=== PATIENT | female | born 1940 | race Caucasian/White ===

== ENCOUNTER 2018-05-20 07:46 | Day surgery (SDC) | payer MEDICARE ==
[2018-05-13 12:09] VITALS: BMI 33.2
[~2018-05-20 07:46] MED LIST: HYDROmorphone 1 MG/ML 1 ML SYRINGE IVP PRN; LACTATED RINGERS 1,000 ML IV SCH; MOXIFLOXACIN HCL 0.5% DROPS 3 ML BTL OP ONE; PILOCARPINE 2% OPHTH DROPS 15 ML BTL OP ONE; TETRACAINE 0.5% OPHTH (PF) DROPS 4 ML BTL OP ONE; TIMOLOL 0.5% OPHTH DROPS 5 ML BTL OP ONE
[2018-05-20 08:47] VITALS: RESP 16; TEMP 97
[2018-05-20] MEDS ORDERED: LIDOCAINE 1% 20 ML VIAL (10MG/ML) FOR IV START INTRADERMA ONE (08:47)
[2018-05-20 08:51] LABS: Glucose,Whole Blood 113 mg/dL (75-99)
[2018-05-20] MEDS ORDERED: fentaNYL (PF) 50 MCG/ML 2 ML AMP ONE (09:37)
[2018-05-20] MEDS ORDERED: MIDAZOLAM 2 MG/2 ML VIAL ONE (09:37)
[2018-05-20] MEDS ORDERED: BALANCED SALT IRRIG SOLN COMB2 15 ML IRRIG.SOLN IRRIGATION ONE (09:41)
[2018-05-20] MEDS ORDERED: DUOVISC KIT (GREEN BOX) INTRAOCULA ONE (09:41)
[2018-05-20] MEDS ORDERED: LIDOCAINE 1% (PF) 10MG/ML VIAL SQ ONE (09:41)
[2018-05-20] MEDS ORDERED: EPINEPHrine (PF) 0.3 ML in BALANCED SALT IRRIG SOLN COMB2 500 ML IRRIGATION ONE (09:42)
[2018-05-20] MEDS ORDERED: FLUORESCEIN STRIPS 1 MG STRIP LEFT EYE ONE (09:57)
[2018-05-20] MEDS ORDERED: BACITRACIN 500 UNIT/GM OINT 28.4 GM TUBE TOPICAL ONE (10:01)
--- NOTE | 2018-05-20 10:07 | P.OP ---
Date of Procedure: 05/20/18 Preoperative Diagnosis: POAG moderate Postoperative Diagnosis: same Procedure(s) Performed: goniotomy OS Implants: none Anesthesia: MAC Surgeon: Rickey Kincaid Estimated Blood Loss (ml): 0 Pathology: none sent Condition: stable Disposition: same day Indications for Procedure: POAG not controlled Operative Findings: no complications, except for skin irritation from drape coated with polysporin ointment.
[2018-05-20 10:38] VITALS: BP 132/72; PULSE 62
--- NOTE | 2018-05-20 16:08 | OP ---
OPERATIVE REPORT DATE OF SURGERY: May 20, 2018. PROCEDURE PERFORMED: Goniotomy of the left eye. PREOPERATIVE DIAGNOSIS: Primary open-angle glaucoma, severe stage, left eye. POSTOPERATIVE DIAGNOSIS: Primary open angle glaucoma, severe stage, left eye. SURGEON: Dr. Rickey Kincaid. ANESTHESIA: Topical. ESTIMATED BLOOD LOSS: Less than 5 mL. SPECIMEN: Taken none. NARRATIVE: After obtaining the appropriate consent, the patient was brought to the operating room. There she was placed on cardiac monitoring prepped and draped in the usual sterile manner. She was approached from her left temporal side and at the 3 o'clock position, a 2.5 mm keratome was used to create a self-sealing corneal flap incision in a Langerman's fashion. Through this opening 1% Xylocaine MPF 50 50 mix with balanced salt solution was injected into the anterior chamber. This was followed by stabilization of the anterior chamber with Viscoat. A small amount of Viscoat was also placed on the patient's cornea. She was then asked to rotate her head to the right approximately 45 degrees and maintain her gaze in that direction. A gonio prism was placed on the patient's eye. The trabecular meshwork was easily identified and a Xerion Advanced Batteryk dual blade goniotomy knife was passed across the anterior chamber and using a cristobal and meet technique, the trabecular meshwork was scored followed by the removal of approximately 5 hours of trabecular meshwork on the nasal side of the patient's eye. A small amount of blood was identified as one would expect during the course of the procedure. Irrigation/aspiration was introduced to remove the viscoelastic and temporarily tamponade the blood. The eye was then brought to normal intraocular pressure after hydrating the temporal incision. She received 2 drops of 0.5% timolol as well as 1% pilocarpine, and moxifloxacin. Fluorescein was used to confirmed watertight integrity. She was then lightly patched and shielded at the end of the case. There were no complications from the procedure. She tolerated the procedure well, was returned to outpatient recovery in good condition. MMODL / IJN: [id number] /
== END 2018-05-20 10:53 | disposition home or self-care (01) ==
LOC: OR 07:46
PROVIDERS: ATTEND Ophthalmology
DX: H40.1123 Primary open-angle glaucoma, left eye, severe stage (principal); H40.1323 Pigmentary glaucoma, left eye, severe stage; H40.131 Pigmentary glaucoma, right eye; H47.20 Unspecified optic atrophy; H52.4 Presbyopia; H21.233 Degeneration of iris (pigmentary), bilateral; H52.13 Myopia, bilateral; H00.026 Hordeolum internum left eye, unspecified eyelid; H00.023 Hordeolum internum right eye, unspecified eyelid; Z96.1 Presence of intraocular lens; I10 Essential (primary) hypertension; R73.03 Prediabetes; E07.9 Disorder of thyroid, unspecified; M19.90 Unspecified osteoarthritis, unspecified site; Z79.84 Long term (current) use of oral hypoglycemic drugs; Z79.890 Hormone replacement therapy; Z79.899 Other long term (current) drug therapy; Z79.82 Long term (current) use of aspirin; Z88.8 Allergy status to other drugs, medicaments and biological substances; Z88.2 Allergy status to sulfonamides
CPT/HCPCS: 65820; J2250; J0171; J3010; J2001

== ENCOUNTER 2019-03-17 08:17 | Day surgery (SDC) | payer MEDICARE ==
[2019-03-10 15:34] VITALS: BMI 30.2
[~2019-03-17 08:17] MED LIST changes: -HYDROmorphone 1 MG/ML 1 ML SYRINGE IVP PRN; +LIDOCAINE 1% 20 ML VIAL (10MG/ML) FOR IV START INTRADERMA PRN; +MIDAZOLAM 2 MG/2 ML VIAL IV PRN; +MITOMYCIN OP ONE; -PILOCARPINE 2% OPHTH DROPS 15 ML BTL OP ONE; -TIMOLOL 0.5% OPHTH DROPS 5 ML BTL OP ONE
[2019-03-17 09:05] LABS: Glucose,Whole Blood 136 mg/dL (75-99)
[2019-03-17 09:11] VITALS: RESP 16; TEMP 98.3
[2019-03-17] MEDS ORDERED: MIDAZOLAM 2 MG/2 ML VIAL ONE (10:01)
[2019-03-17] MEDS ORDERED: fentaNYL (PF) 50 MCG/ML 2 ML AMP ONE (10:01)
[2019-03-17] MEDS ORDERED: EPINEPHrine (PF) 0.3 ML in BALANCED SALT IRRIG SOLN COMB2 500 ML IRRIGATION ONE (10:08)
[2019-03-17] MEDS ORDERED: BALANCED SALT IRRIG SOLN COMB2 15 ML IRRIG.SOLN IRRIGATION ONE (10:10)
[2019-03-17] MEDS ORDERED: LIDOCAINE 2%-EPI 1:100,000 20 ML VIAL SQ ONE (10:19)
[2019-03-17] MEDS ORDERED: FLUORESCEIN STRIPS 1 MG STRIP RIGHT EYE ONE (11:02)
--- NOTE | 2019-03-17 11:09 | P.OP ---
Date of Procedure: 03/17/19 Preoperative Diagnosis: POAG uncontrolled Postoperative Diagnosis: same Procedure(s) Performed: shunt trabeculectomy Implants: Ex-Press P50 Anesthesia: MAC Surgeon: Rickey Kincaid Pathology: none sent Condition: stable Disposition: same day Indications for Procedure: uncontrolled glaucoma Operative Findings: no complications
[2019-03-17 11:28] VITALS: BP 134/77; PULSE 71
--- NOTE | 2019-03-18 07:59 | OP ---
OPERATIVE REPORT DATE OF SURGERY: 03/17/2019 PROCEDURE: Shunt trabeculectomy of the right eye with mitomycin. PREOPERATIVE DIAGNOSIS: Uncontrolled glaucoma of moderate stage. POSTOPERATIVE DIAGNOSIS: Uncontrolled glaucoma of moderate stage. SURGEON: Dr. Rickey Kincaid. ANESTHESIA: Topical. ESTIMATED BLOOD LOSS: Less than 5 mL. SPECIMEN TAKEN: None. NARRATIVE: After obtaining the appropriate consent, the patient was brought to the operating room. There she was placed on cardiac monitoring, prepped and draped in the usual sterile manner. She was approached from the 12 o'clock position and a 6-0 silk suture was used to apply traction to the 12 o'clock position of the eye reflecting the globe in a down gaze. In the superior temporal quadrant, forceps were used to elevate the conjunctiva and Montrell scissors were used to divide the tissue down to bare sclera undermining Tenon's and conjunctiva starting from the superior temporal position and proceeding along the superior aspect of the globe for approximately 180 degrees. This whole area was bluntly dissected without significant difficulty. Conjunctiva was then removed from the limbus and reflected posteriorly. Bipolar cautery was used to control the scleral bleeding. During this conjunctival undermining, 2% lidocaine with epinephrine was infiltrated through the entire superior hemisphere of the eye. An area at the 12 o'clock position adjacent to the limbus was measured out at 3 x 3 mm and was then subsequently outlined using bipolar cautery. A partial thickness scleral flap was created directing the flap with a hinge at the corneal limbus. Once the area was relatively well hemostatically controlled, a solution of mitomycin of 0.2 mg/mL was placed against this area for approximately 2 minutes using a Weck-Ольга sponge. Once the time elapsed, the sponge and the instrument used to place the sponge were removed from the field and the area was copiously irrigated with balanced salt solution. A 27-gauge hypodermic needle was bent to accommodate its use at the limbus of the eye and at the apex of the flap this gentian evangelist marked, 27-gauge needle was then passed from sclera into the anterior chamber parallel to the iris. Once the 27-gauge needle used as a trocar was removed from the eye, an Gee Ex-Press version P 50 shunt was then placed through the path previously created by the 27-gauge needle. Good aqueous flow was appreciated through the opening of the shunt and the flap was then placed back over its bed. It was secured with two 10-0 nylon sutures leaving the flap moderately tight to the scleral bed. One last look around for any remaining bleeders was accomplished and those were cauterized using the bipolar cautery. The conjunctiva was then brought back to its original position and an 8-0 Vicryl suture was used to secure the superior temporal incision ensuring that the superior limbus was completely covered with conjunctiva. A fluorescein strip was used to confirm watertight integrity. The patient then received 2 drops of moxifloxacin, was then lightly patched and shielded in the usual fashion. At the end of the case prior to patching the eye, the intra-ocular pressure was noted to be less than 5 mmHg by palpation. The eye was patched and shielded in the usual manner. There were no complications from the procedure and she tolerated the procedure well. She was then returned to recovery in good condition. YUDITH / ASIM: [id number] /
== END 2019-03-17 11:58 | disposition home or self-care (01) ==
LOC: OR 08:17
PROVIDERS: ATTEND Ophthalmology
DX: H40.131 Pigmentary glaucoma, right eye (principal); H47.20 Unspecified optic atrophy; H52.4 Presbyopia; H21.233 Degeneration of iris (pigmentary), bilateral; H00.023 Hordeolum internum right eye, unspecified eyelid; H00.026 Hordeolum internum left eye, unspecified eyelid; I10 Essential (primary) hypertension; E11.9 Type 2 diabetes mellitus without complications; Z79.890 Hormone replacement therapy; Z79.899 Other long term (current) drug therapy
CPT/HCPCS: 66170; C1783; J2250; J0171; J3010

== ENCOUNTER 2019-09-15 10:40 | Day surgery (SDC) | payer MEDICARE ==
[2019-09-13 14:32] VITALS: BMI 29.7
[~2019-09-15 10:40] MED LIST changes: -MIDAZOLAM 2 MG/2 ML VIAL IV PRN; -MITOMYCIN OP ONE; -MOXIFLOXACIN HCL 0.5% DROPS 3 ML BTL OP ONE; +mitoMYcin for Eyes 0.06 MG, EMPTY SYRINGE 1 SYR OP ONE
[2019-09-15 11:22] VITALS: TEMP 97.4
[2019-09-15 11:34] LABS: Glucose,Whole Blood 119 mg/dL (75-99)
[2019-09-15] MEDS ORDERED: MIDAZOLAM 2 MG/2 ML VIAL ONE (12:48)
[2019-09-15] MEDS ORDERED: fentaNYL (PF) 50 MCG/ML 2 ML AMP ONE (12:48)
[2019-09-15] MEDS ORDERED: LIDOCAINE 2%-EPI 1:100,000 20 ML VIAL SUBMUCOSAL ONE (13:12)
[2019-09-15] MEDS ORDERED: FLUORESCEIN STRIPS 1 MG STRIP LEFT EYE ONE (13:57)
[2019-09-15] MEDS ORDERED: NEOMYCIN-POLYMYXIN-DEXAMETH OINT 3.5 GM TUBE LEFT EYE ONE (13:59)
[2019-09-15 14:24] VITALS: BP 133/80; PULSE 77; RESP 18
--- NOTE | 2019-09-15 14:31 | P.OP ---
Date of Procedure: 09/15/19 Preoperative Diagnosis: POAG severe Postoperative Diagnosis: same Procedure(s) Performed: shunt implant with MMC Implants: R50 Anesthesia: MAC Surgeon: Rickey Kincaid Pathology: none sent Condition: stable Disposition: same day Indications for Procedure: poor glaucoma control Operative Findings: no complications
--- NOTE | 2019-09-15 21:04 | OP ---
OPERATIVE REPORT DATE OF SURGERY: 09/15/2019. PROCEDURE: Ex-Press shunt implantation with mitomycin of the left eye. PREOPERATIVE DIAGNOSIS: Primary open-angle glaucoma, severe stage. POSTOPERATIVE DIAGNOSIS: Primary open-angle glaucoma, severe stage. SURGEON: Dr. Rickey Kincaid. ANESTHESIA: Topical. ESTIMATED BLOOD LOSS: Less than 5 mL. SPECIMEN TAKEN: None. NARRATIVE: After obtaining the appropriate consent, the patient was brought to the operating room. There she was placed on cardiac monitoring, prepped and draped in the usual sterile manner. She was approached from her 12 o'clock position. Intraocular pressure with a Schiotz tonometer was identified at 17 mmHg. This was followed by placement of a traction suture using 6-0 Vicryl at the 12 o'clock position and securing the eye in a down gaze. In the superotemporal quadrant scissors and 0.12 forceps were used to create an incision through the conjunctiva and Tenon's tissue down to bare sclera. Initial undermining with blunt dissection was accomplished with Montrell scissors. This was followed by instillation of 2% lidocaine with epinephrine on a cannula beneath Tenon's capsule along the entire superior and toward the nasal side of the eye. Conjunctival tissue was then reflected from the limbus and undermined as far superiorly and proximally as possible through the entire extent. Bipolar cautery was used to control superficial bleeding from the sclera and centrally at the corneal limbus. A 3 x 3 mm square was identified, and using the caliper, and outlined using the bipolar cautery. A 2 mm crescent blade was used to create a partial-thickness scleral pocket which was directed towards the corneal limbus. Each side of this pocket was then incised using the Montrell scissors, creating a square partial-thickness scleral flap. In this area a solution of mitomycin of 2 mg/mL on an instrument wipe was then placed beneath the partial-thickness scleral flap and its bed along with the local conjunctiva, which was brought superiorly over the corneal limbus. This solution was allowed to dwell in this area for 2 minutes. Mitomycin was then aggressively lubricated away using balanced-salt solution. A 27-gauge mqaj-[id number]-y-half hypodermic needle was then bent and passed from the apex of the partial-thickness scleral pocket parallel to the iris and into the anterior chamber. An Ex-Press shunt version P50 was then placed through this opening piloted by the 27-gauge needle. Confirmation of aqueous from the shunt device was confirmed. The partial-thickness scleral flap was then secured to its bed loosely using two 10-0 nylon sutures on each leg of the flap. Any superficial oozing of blood was identified and cauterized using the bipolar cautery, and the conjunctiva was then brought over the superior limbus of the cornea and secured using 8- 0 Vicryl suture. Fluorescein was used to confirm watertight integrity and the 6-0 traction suture was removed from the patient's eye. Intraocular pressure measured with the Schiotz tonometer using a 5.5 gram weight was not recordable; however, it measured 18 on the numeric scale on the Schiotz tonometer. The patient's eye was then dressed with Maxitrol ointment followed by a light patch and was shielded in the usual manner. There were no complications from this procedure. She was returned to Outpatient Recovery in good condition. MMOBED / COLINN: [id number] /
== END 2019-09-15 14:52 | disposition home or self-care (01) ==
LOC: OR 10:40
PROVIDERS: ATTEND Ophthalmology
DX: H40.1123 Primary open-angle glaucoma, left eye, severe stage (principal); H47.20 Unspecified optic atrophy; H52.4 Presbyopia; H21.233 Degeneration of iris (pigmentary), bilateral; H52.13 Myopia, bilateral; H00.026 Hordeolum internum left eye, unspecified eyelid; H00.023 Hordeolum internum right eye, unspecified eyelid; Z96.1 Presence of intraocular lens; E11.9 Type 2 diabetes mellitus without complications; E07.9 Disorder of thyroid, unspecified; I10 Essential (primary) hypertension; Z79.84 Long term (current) use of oral hypoglycemic drugs; Z79.82 Long term (current) use of aspirin; Z79.890 Hormone replacement therapy; Z79.899 Other long term (current) drug therapy; Z88.2 Allergy status to sulfonamides
CPT/HCPCS: 66183; C1783; J2250; J3010

== ENCOUNTER 2019-09-23 13:06 | Day surgery (SDC) | payer MEDICARE ==
[~2019-09-23 13:06] MED LIST changes: +ATROPINE OPHTH SOLN 1% 5ML BTL BOTH EYES NR; -LACTATED RINGERS 1,000 ML IV SCH; -LIDOCAINE 1% 20 ML VIAL (10MG/ML) FOR IV START INTRADERMA PRN; -mitoMYcin for Eyes 0.06 MG, EMPTY SYRINGE 1 SYR OP ONE
[2019-09-23 13:29] VITALS: TEMP 97
[2019-09-23 13:34] VITALS: BMI 33.2
[2019-09-23] MEDS ORDERED: LACTATED RINGERS 1,000 ML IV ONE (13:35)
[2019-09-23] MEDS ORDERED: LIDOCAINE 1% (10MG/ML) FOR IV START SQ ONE (13:35)
[2019-09-23 13:41] LABS: Glucose,Whole Blood 109 mg/dL (75-99)
[2019-09-23] MEDS ORDERED: MOXIFLOXACIN HCL 0.5% DROPS 3 ML BTL LEFT EYE ONE ×3 (13:41→14:39)
[2019-09-23] MEDS ORDERED: MIDAZOLAM 2 MG/2 ML VIAL ONE (14:08)
[2019-09-23] MEDS ORDERED: PROPOFOL 10 MG/ML 20 ML VIAL IV ONE (14:08)
[2019-09-23] MEDS ORDERED: fentaNYL (PF) 50 MCG/ML 2 ML AMP ONE (14:08)
[2019-09-23] MEDS ORDERED: BALANCED SALT IRRIG SOLN COMB2 15 ML IRRIG.SOLN IRRIGATION ONE ×2 (14:09→14:26)
[2019-09-23] MEDS ORDERED: ATROPINE OPHTH SOLN 1% 5ML BTL LEFT EYE ONE ×2 (14:09→14:39)
[2019-09-23] MEDS ORDERED: LIDOCAINE 2%-EPI 1:100,000 20 ML VIAL INTRAARTIC ONE (14:28)
[2019-09-23] MEDS ORDERED: TETRACAINE 0.5% OPHTH (PF) DROPS 4 ML BTL LEFT EYE ONE (14:29)
[2019-09-23] MEDS ORDERED: FLUORESCEIN STRIPS 1 MG STRIP LEFT EYE ONE (14:38)
--- NOTE | 2019-09-23 14:43 | P.OP ---
Date of Procedure: 09/23/19 Preoperative Diagnosis: bleb leak Postoperative Diagnosis: same Procedure(s) Performed: bleb revision Implants: none Anesthesia: MAC Surgeon: Rickey Kincaid Estimated Blood Loss (ml): 0 Pathology: none sent Condition: stable Disposition: same day Indications for Procedure: leaking bleb Operative Findings: no complications
[2019-09-23 15:22] VITALS: PULSE 86; RESP 18
[2019-09-23 15:27] VITALS: BP 123/78
--- NOTE | 2019-09-23 20:35 | OP ---
OPERATIVE REPORT DATE OF PROCEDURE: 09/23/2019. PROCEDURE: Revision of bleb leak of the left eye. PREOPERATIVE DIAGNOSIS: Bleb wound leak of the eye following shunt implantation of the left eye. POSTOPERATIVE DIAGNOSIS: Bleb wound leak of the eye following shunt implantation of the left eye. SURGEON: Dr. Rickey Kincaid. ANESTHESIA: Topical. ESTIMATED BLOOD LOSS: Less than 5 mL. SPECIMEN TAKEN: None. NARRATIVE: After obtaining the appropriate consent, the patient was brought to the operating room. There she was placed under cardiac monitoring, prepped and draped in the usual sterile manner. She was approached from the 12 o'clock position and a 6-0 Vicryl suture was used as a traction suture to direct the eye in a downward gaze. Using 0.12 forceps, a small area of the conjunctiva was elevated and easily from the globe. Using 2% lidocaine with epinephrine on a 25-gauge cannula, this solution was irrigated through the previously defined bleb field using blunt dissection and providing additional anesthesia to the superior area of the globe. A 27-gauge cannula with balanced salt solution was used to elevate the partial-thickness scleral flap from the temporal side. Immediately intraocular pressure fell to approximately zero. All bleeding was confirmed under control and the conjunctiva was then elevated from its existing placement on the patient's eye and brought over the superior limbus of the cornea, creating a watertight seal using 8-0 Vicryl. Confirmation of watertight integrity was confirmed using a fluorescein strip. She then received 2 drops of 1% atropine and 2 drops of moxifloxacin, was then lightly patched and shielded in the usual manner. There were no complications from the procedure. She tolerated the procedure well and was returned to Outpatient Recovery in good condition. MMODL / IJN: [id number] /
== END 2019-09-23 15:25 | disposition home or self-care (01) ==
LOC: OR 13:06
PROVIDERS: ATTEND Ophthalmology
DX: Z98.83 Filtering (vitreous) bleb after glaucoma surgery status (principal); H40.1323 Pigmentary glaucoma, left eye, severe stage; H40.131 Pigmentary glaucoma, right eye; H47.20 Unspecified optic atrophy; H52.4 Presbyopia; H21.233 Degeneration of iris (pigmentary), bilateral; H52.13 Myopia, bilateral; H00.023 Hordeolum internum right eye, unspecified eyelid; H00.026 Hordeolum internum left eye, unspecified eyelid; I10 Essential (primary) hypertension; M19.90 Unspecified osteoarthritis, unspecified site; M79.10 Myalgia, unspecified site; M25.50 Pain in unspecified joint; M54.9 Dorsalgia, unspecified; E78.5 Hyperlipidemia, unspecified; E11.36 Type 2 diabetes mellitus with diabetic cataract; E03.9 Hypothyroidism, unspecified; Z88.8 Allergy status to other drugs, medicaments and biological substances; Z88.2 Allergy status to sulfonamides; Z98.890 Other specified postprocedural states; Z98.41 Cataract extraction status, right eye; Z98.42 Cataract extraction status, left eye; Z96.1 Presence of intraocular lens; Z96.643 Presence of artificial hip joint, bilateral; Z79.899 Other long term (current) drug therapy; Z79.84 Long term (current) use of oral hypoglycemic drugs; Z79.890 Hormone replacement therapy; Z97.3 Presence of spectacles and contact lenses; Z97.2 Presence of dental prosthetic device (complete) (partial); Z83.518 Family history of other specified eye disorder; Z83.511 Family history of glaucoma; Z80.9 Family history of malignant neoplasm, unspecified; Z82.49 Family history of ischemic heart disease and other diseases of the circulatory system
CPT/HCPCS: 66250; J2250; J3010; J2704

== ENCOUNTER → 2022-06-21 | Outpatient (CLI) | payer MEDICARE ==
--- NOTE | 2022-06-21 12:09 | BD ---
EXAMINATION TYPE: Axial Bone Density DATE OF EXAM: 06/21/2022 COMPARISON: NONE CLINICAL HISTORY: 81 years year old Female. ICD-10 CODE: Z78.0 ASYMPTOMATIC MENOPAUSAL STATE Height: 61 IN Weight: 163 LBS FRAX RISK QUESTIONS: History of Fracture in Adulthood: RT ANKLE AGE 61 RISK FACTORS HISTORY OF: Surgery to Hip(right/left): BILAT HIP REPLACEMENT Active: YES Postmenopausal woman: AGE 50 MEDICATIONS: Thyroid Medications: YES Which medication: How Lon YEARS Additional Medications: THYROID MEDS, BLOOD PRESSURE,POTASSIUM, EXAM MEASUREMENTS: Bone mineral densitometry was performed using the Viropro System. Bone mineral density as measured about the Lumbar spine is: ----- L1-L4(G/cm2): 1.227 T Score Values are as follows: ----- L1: 1.0 ----- L2: 0.2 ----- L3: 1.1 ----- L4: -0.6 ----- L1-L4: 0.4 Bone mineral density BASELINE GURDEEP HIP REPLACEMENTS Bone mineral density about the R Wrist (g/cm2): 0.543 T Score values are as follows: -----Dist. R+U: -2.0 -----Prox. R+U: -1.5 -----Radius total: -2.2 Bone mineral density BASELINE IMPRESSION: Osteopenia (T Score between -2.5 and -1). There is slightly increased risk of fracture and the patient may be considered for treatment. Re-Screen 2-5 years. NOTE: T-SCORE=SD OF THE YOUNG ADULT MEAN.
== END | disposition home or self-care (01) ==
LOC: RADBDWWP 08:12
PROVIDERS: ATTEND Internal Medicine
DX: Z13.820 Encounter for screening for osteoporosis (principal); M85.89 Other specified disorders of bone density and structure, multiple sites; Z78.0 Asymptomatic menopausal state
CPT/HCPCS: 77080

== ENCOUNTER → 2022-06-24 | Outpatient (CLI) | payer MEDICARE ==
--- NOTE | 2022-06-24 08:00 | US ---
EXAMINATION TYPE: US kidneys/renal and bladder DATE OF EXAM: 06/24/2022 COMPARISON: NONE CLINICAL HISTORY: N18.30 CHRONIC KIDNEY DISEASE, STAGE 3 UNSPECIFIED. Pt states recent abnormal labs EXAM MEASUREMENTS: Right Kidney: 9.2 x 4.5 x 4.1 cm Left Kidney: 9.2 x 5.2 x 4.3 cm Right Kidney: Appeared wnl, lower pole gassed out Left Kidney: Appeared wnl Bladder: wnl Bilateral Jets seen: No Incidental finding gallstones, and splenic calcification There is no evidence for hydronephrosis at this point in time. No nephrolithiasis is seen. No malaika s are identified. The urinary bladder is anechoic. Bilateral ureteral jets are seen. IMPRESSION: Evaluation of the kidneys is within normal limits. Incidental gallstones noted.
== END | disposition home or self-care (01) ==
LOC: RADUSWWP 07:22
PROVIDERS: ATTEND Internal Medicine
DX: N18.30 Chronic kidney disease, stage 3 unspecified (principal); K80.20 Calculus of gallbladder without cholecystitis without obstruction
CPT/HCPCS: 76770

== ENCOUNTER → 2023-10-24 | Outpatient (CLI) | payer MEDICARE ==
[2023-10-24 15:55] LABS: BUN/Creat Ratio 24.55 Ratio (12.00-20.00); Calcium 10.1 mg/dL (8.7-10.3); Carbon Dioxide 26.1 mmol/L (21.6-31.8); Chloride 93 mmol/L (96-109); Glucose 160 mg/dL (70-110); Magnesium 1.3 mg/dL (1.5-2.4); Potassium 4.2 mmol/L (3.5-5.5); Sodium 132 mmol/L (135-145)
[2023-10-24 16:02] LABS: Protein, Total 7.2 g/dL (6.2-8.2)
== END | disposition home or self-care (01) ==
LOC: LABWHC1 06:53
PROVIDERS: ATTEND Internal Medicine
DX: E83.52 Hypercalcemia (principal)
CPT/HCPCS: 36415; 80048; 82330; 82652; 83735; 84165

== ENCOUNTER → 2024-04-07 | Outpatient (CLI) | payer MEDICARE ==
--- NOTE | 2024-04-07 08:28 | XR ---
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 FINDINGS: Lungs/Pleura: There is no evidence of pleural effusion, focal consolidation, or pneumothorax. Pulmonary vascularity: Unremarkable. Heart/mediastinum: Cardiomediastinal silhouette is unremarkable. Musculoskeletal: No acute osseous pathology. Other findings: None IMPRESSION: No acute cardiopulmonary disease/process. [facility] Marlon Dixon, , 04/07/2024 8:26 AM
[2024-04-07 10:41] LABS: BUN/Creat Ratio 24.78 Ratio (12.00-20.00); Blood Urea Nitrogen 22.3 mg/dL (9.0-27.0); Calcium 9.4 mg/dL (8.7-10.3); Carbon Dioxide 27.6 mmol/L (21.6-31.8); Chloride 101 mmol/L (96-109); Glucose 146 mg/dL (70-110); Potassium 4.2 mmol/L (3.5-5.5); Sodium 138 mmol/L (135-145)
== END | disposition home or self-care (01) ==
LOC: LABWHC1 07:09
PROVIDERS: ATTEND Internal Medicine
DX: E22.2 Syndrome of inappropriate secretion of antidiuretic hormone (principal)
CPT/HCPCS: 36415; 71046; 80048